=== PATIENT | female | born 1950 | race Caucasian/White ===

== ENCOUNTER 2016-10-24 09:54 | Inpatient (IN) | payer OTHER, MEDICARE ==
[~2016-10-24] VITALS: Ht 162.6 cm; Wt 66.0 kg
[2016-10-31] MEDS ORDERED: IPRAAER INH (15:36)
[2016-10-31] MEDS ORDERED: SYMB160A INH (15:38)
[2016-10-31] MEDS ORDERED: ASPI81TA81 PO (15:38)
[2016-10-31] MEDS ORDERED: OMEP20TA PO (15:40)
[2016-10-31] MEDS ORDERED: NOVOLOGSS SQ (15:42)
[2016-11-04] VITALS (7 sets, daily range): BP systolic 122–149; BP diastolic 64–70; PULSE 96–110; RESP 16; TEMP 97.8–98.5; O2SAT 92–96
[2016-11-04] MEDS ORDERED: ONDANSETRON HCL 4 MG/2 ML VIAL IV PUSH ONE (12:00)
[2016-11-04] MEDS ORDERED: PROPOFOL 200 MG/20 ML AMP IV ONE (12:00)
[2016-11-04] MEDS ORDERED: PHENYLEPH/NS 1000 MCG/10 ML SYR IV ONE (12:00)
[2016-11-04] MEDS ORDERED: ePHEDrine/NS 25 MG/5 ML SYR IV ONE (12:00)
[2016-11-04] MEDS ORDERED: LACTATED RINGER'S 1000 ML INJ 1,000 ML IV ONE (12:00)
[2016-11-04] MEDS ORDERED: METOPROLOL TARTRATE 25 MG TAB PO PRN (12:15)
[2016-11-04] MEDS ORDERED: INSULIN HUMAN REGULAR 1,000 UNITS/10 ML VIAL SQ PRN (12:15)
[2016-11-04] MEDS ORDERED: LACTATED RINGER'S 1000 ML IV PRN (12:15)
[2016-11-04] MEDS ORDERED: ceFAZolin 1,000 MG/NS 100 ML IV SCH ×2 (12:15)
[2016-11-04] MEDS ORDERED: CHLORHEXIDINE GLUCONATE 2 % 1 PACK (2 CLOTHS) TOPICAL PRN (12:15)
[2016-11-04] MEDS ORDERED: SODIUM CHLORID 0.9% 500 ML IV PRN (12:15)
[2016-11-04] MEDS ORDERED: METRONIDAZOLE 500 MG/100 ML ISONTONIC SOLN IV SCH (12:15)
[2016-11-04] MEDS ORDERED: ALVIMOPAN 12 MG CAPSULE - On Call PO SCH (12:15)
[2016-11-04] MEDS ORDERED: DEXT 5%-NACL 0.9% 1000 ML INJ 1,000 ML IV SCH (12:15)
[2016-11-04] MEDS ORDERED: fentaNYL CITRATE 250 MCG/5 ML AMP ONE (12:35)
[2016-11-04] MEDS ORDERED: HYDROmorphone HCL PF 2 MG/ML VIAL ONE (12:35)
[2016-11-04] MEDS ORDERED: SUGAMMADEX SODIUM 200 MG/2 ML VIAL IV PUSH ONE ×2 (12:35)
--- NOTE | 2016-11-04 13:06 | PD.HP.UP ---
H&P Update Note The Pre-Admit History and Physical Examination regarding the above named patient was reviewed (including, but not limited to, vital signs, heart, lungs, co-morbid conditions), and upon re-examination it is noted that: the patient's condition has not significantly changed since the last examination. Car Vasquez MD Nov 04, 2016 13:06
[2016-11-04] MEDS ORDERED: Post-op Orders (for Pharmacy) MISC XX ONE (15:22)
[2016-11-04] MEDS ORDERED: NALOXONE HCL 0.4 MG/ML AMP IV PRN (15:30)
[2016-11-04] MEDS ORDERED: ZOLPIDEM TARTRATE 5 MG TAB PO PRN (15:30)
[2016-11-04] MEDS ORDERED: GLUCAGON 1 MG/ML VIAL OTHER PRN (15:30)
[2016-11-04] MEDS ORDERED: POTASSIUM CHLOR 20 MEQ PREMIX 100 ML IV PRN (15:30)
[2016-11-04] MEDS ORDERED: POTASSIUM CHLOR 40 MEQ PREMIX 100 ML IV PRN (15:30)
[2016-11-04] MEDS ORDERED: BENZOCAINE 6 MG/MENTHOL 10 MG LOZENGE BUCCAL PRN (15:30)
[2016-11-04] MEDS ORDERED: ENALAPRILAT 1.25 MG/ML VIAL IV PRN (15:30)
[2016-11-04] MEDS ORDERED: SODIUM CHLORIDE 0.9% FLUSH 10 ML FLUSH IV FLUSH PRN (15:30)
[2016-11-04] MEDS ORDERED: DEXTROSE 50% IN WATER 50 ML VIAL(D50) IV PUSH PRN (15:30)
[2016-11-04] MEDS ORDERED: KETOROLAC TROMETHAMINE 30 MG/ML (IVP) VIAL IVP PRN (15:30)
[2016-11-04] MEDS ORDERED: *morphine SULFATE 8 MG/ML PERIprocedure ONLY ONE ×2 (15:57→17:04)
[2016-11-04] MEDS: INSULIN NovoLIN REGULAR SUPPLEMENTAL SCALE SQ SCH ×2 (16:00→21:54)
[2016-11-04] MEDS ORDERED: DO NOT ADM ANY ANTICOAGULANT DRUGS PRN (16:00)
--- NOTE | 2016-11-04 16:30 | MP ---
cc: PANDA CARBALLO M.D., JOHN T. MD GONTCHAROVA, MARIA PASRICHA, SUNIL P. M.D. DESAI, SURESH DATE OF SURGERY: 11/04/2016 PREOPERATIVE DIAGNOSIS: Proximal ascending colon carcinoma. POSTOPERATIVE DIAGNOSIS: Proximal ascending colon carcinoma. OPERATION: Ascending colectomy. ANESTHESIA General endotracheal anesthesia SURGEON Dr. Vasquez. NEON GLASS BENDER: Dr. Mason. ESTIMATED BLOOD LOSS: 25 cc OPERATIVE FINDINGS This patient was diagnosed with an ascending colon carcinoma, after coming in with anemia. She underwent a colonoscopy by Dr. Patel. At colonoscopy biopsy of the lesion was done and returned as adenocarcinoma of the colon. For this reason, an ascending colectomy was recommended. At surgery an ascending colectomy was done with an ileotransverse colon anastomosis. Exploration of the abdominal cavity revealed that the colon was otherwise palpably normal as was the small bowel. The uterus, tubes and ovaries were surgically absent. The liver was palpably normal although there were adhesions above the liver precluding a full palpation of the liver but what was palpable was normal including the full left lobe of the liver. The gallbladder was also palpably normal as was the stomach. The descending and sigmoid colon was covered with the omentum that was stuck down the left colic gutter. The peritoneal edge showed that it was not really palpable but appeared normal. The carcinoma was located in the proximal ascending colon just above the cecum. OPERATIVE TECHNIQUE The patient was placed on the table in the supine position. After adequate general endotracheal anesthesia the abdomen was prepped and draped in the usual manner. Transverse supraumbilical skin incision was made and carried down through the subcutaneous tissue and the rectus muscles and the peritoneal cavity was entered with the above-mentioned findings. We initially did a right upper abdominal incision, however, there was not sufficient space due to her small body habitus and mild obesity, so I extended the incision over the left rectus muscle as well. Once the abdomen was fully opened we did note that the splenic flexure and the omentum on the left side was firmly adherent in the left upper quadrant and along the descending colon to the parietal peritoneum. The lesion was palpable in the proximal ascending colon, ascending colon, and the ascending colon was mobilized along its peritoneal reflection. Once this was done the omentum was mobilized from the transverse colon and the lesser sac was entered and the full transverse colon was mobilized from the omentum up to but not including the splenic flexure or the descending colon. Once this was done the point for division of the transverse colon was decided and we went ahead and went between the two branches of the middle colic vessel and the marginal vessel was singly clamped, cut and ligated with 0 Vicryl ligature and then the transverse colon was divided in its mid section with the Ethicon PAIGE 55 stapling device. Next the ileal colic vessels were isolated and the terminal ileum was divided between Tony clamps and the small bowel vessels near the terminal ileum were clamped, cut and ligated. The ileocolic vessels were doubly clamped, cut and doubly ligated at their origin. The right branch of the middle colic vessel and the right colic vessels were clamped, cut and ligated and the specimen was removed from the table. When the case was over, the specimen was opened, identifying the carcinoma in the proximal ascending colon. Next our attention was turned to the ileum and the transverse colon and the anastomosis was made along the antimesenteric border of the bowel using the Ethicon PAIGE 55 stapling device and then the colotomy was closed with a TX 60 blue staple height stapling device. The opening in the mesentery was approximated with a running 3-0 Vicryl suture in a simple running manner. Hemostasis was maintained throughout with electrocautery and ligature. The abdominal cavity was irrigated thoroughly with saline solution, aspirated dry, and the bowels were replaced in the abdominal cavity in an business solutions consultant manner and the omentum was laid over the left half of the omentum which was remaining was laid over the abdominal contents and then the abdominal cavity was closed in layers using a double strand #1 PDS for the posterior rectus sheath and then that layer was irrigated thoroughly with a liter of saline solution, aspirated dry, and then the anterior rectus sheath and external oblique was closed with double stranded #1 PDS as well. The subcutaneous tissue was irrigated thoroughly with saline solution, aspirated dry, then the skin was closed with running 3-0 Vicryl subcuticular suture and a dressing was applied. Sponge, needle instrument counts were reported as correct. ESTIMATED BLOOD LOSS: 25 cc. The patient tolerated the procedure well and left the operating room in good condition. MD SIOMARA Vaughan/TIARA /3:23 PM /3:59 PM
[2016-11-04 16:36] LABS: AUTOMATED NEUTROPHIL # 13.8 TH/MM3 (1.8-7.7); BASOPHIL # 0.1 TH/MM3 (0-0.2); BASOPHIL % 0.7 % (0.0-2.0); EOSINOPHIL % 0.1 % (0.0-4.0); HEMATOCRIT 33.1 % (35.0-46.0); LYMPH % 6.6 % (9.0-44.0); MEAN CELL VOLUME 87.4 FL (80.0-100.0); MEAN CORPUSCULAR HEMOGLOBIN 28.2 PG (27.0-34.0); MEAN CORPUSCULAR HGB CONC 32.2 % (32.0-36.0); MONO % 1.7 % (0.0-8.0); NEUT % 90.9 % (16.0-70.0); PLATELET COUNT 329 TH/MM3 (150-450); RED BLOOD COUNT 3.79 MIL/MM3 (4.00-5.30); WHITE BLOOD COUNT 15.2 TH/MM3 (4.0-11.0)
[2016-11-04 16:42] LABS: HEMO FLAGS AUTO DIFF
[2016-11-04 16:50] LABS: BICARBONATE 25.2 MEQ/L (21.0-32.0); POTASSIUM 3.9 MEQ/L (3.5-5.1)
[2016-11-04 17:06] LABS: BANDS 16 % (0-6); NEUTROPHIL # MANUAL DIFF 14.3 TH/MM3 (1.8-7.7); OVALOCYTES 1+ (NORMAL); PLATELET ESTIMATE SMEAR NORMAL (NORMAL); PLATELET MORPHOLOGY NORMAL (NORMAL); POLYS (SEG NEUTROPHILS) 78 % (16-70); WBC DIFF SAMPLE 100
[2016-11-04 17:07] LABS: SCAN/DIFF FINAL DIFF MANUAL
[2016-11-04] MEDS: D5-LR + KCL 20 MEQ INJ 1,000 ML IV SCH ×3 (17:45→20:16)
[2016-11-04] MEDS: METOCLOPRAMIDE HCL 10 MG/2 ML VIAL IVS SCH (18:00)
[2016-11-04] MEDS: ONDANSETRON HCL 4 MG/2 ML VIAL IV PRN (18:46)
[2016-11-04] MEDS: ceFAZolin 2 GM PREMIX 50 ML IV SCH (20:17)
[2016-11-04] MEDS: SODIUM CHLORIDE 0.9% FLUSH 10 ML FLUSH IV FLUSH SCH (21:41)
[2016-11-04] MEDS: FUROSEMIDE 20 MG/2 ML VIAL IV SCH (21:41)
[2016-11-04] MEDS: metroNIDAZOLE 500 MG INJ 100 ML IV SCH (21:42)
[2016-11-04] MEDS: PCA - TOTAL MG MORPHINE DELIVERED PER SHIFT SCH (22:00)
[2016-11-05] VITALS (21 sets, daily range): BP systolic 131–145; BP diastolic 55–65; PULSE 100–118; RESP 18–19; TEMP 99–100.8; O2SAT 95–99
[2016-11-05] MEDS: METOCLOPRAMIDE HCL 10 MG/2 ML VIAL IVS SCH ×4 (00:03→17:22)
[2016-11-05] MEDS: D5-LR + KCL 20 MEQ INJ 1,000 ML IV SCH ×2 (01:19→05:27)
[2016-11-05] MEDS: ceFAZolin 2 GM PREMIX 50 ML IV SCH ×2 (04:19→12:06)
[2016-11-05] MEDS: metroNIDAZOLE 500 MG INJ 100 ML IV SCH ×2 (05:27→12:07)
[2016-11-05] MEDS: PCA - TOTAL MG MORPHINE DELIVERED PER SHIFT SCH ×3 (06:00→22:00)
[2016-11-05] MEDS: INSULIN NovoLIN REGULAR SUPPLEMENTAL SCALE SQ SCH ×4 (06:21→20:08)
[2016-11-05 06:37] LABS: AUTOMATED NEUTROPHIL # 12.1 TH/MM3 (1.8-7.7); BASOPHIL % 0.1 % (0.0-2.0); HEMATOCRIT 32.9 % (35.0-46.0); LYMPHOCYTE # 0.7 TH/MM3 (1.0-4.8); MEAN CELL VOLUME 87.6 FL (80.0-100.0); MEAN CORPUSCULAR HEMOGLOBIN 27.6 PG (27.0-34.0); MEAN CORPUSCULAR HGB CONC 31.5 % (32.0-36.0); MONO % 4.4 % (0.0-8.0); NEUT % 90.5 % (16.0-70.0); PLATELET COUNT 311 TH/MM3 (150-450); RED BLOOD COUNT 3.75 MIL/MM3 (4.00-5.30); RED CELL DISTRIBUTION WIDTH 28.4 % (11.6-17.2); WHITE BLOOD COUNT 13.4 TH/MM3 (4.0-11.0)
[2016-11-05 06:43] LABS: HEMO FLAGS AUTO DIFF
[2016-11-05 07:07] LABS: BICARBONATE 29.6 MEQ/L (21.0-32.0); POTASSIUM 4.1 MEQ/L (3.5-5.1)
[2016-11-05 07:59] LABS: SCAN/DIFF AUTO DIFF CONFIRMED
--- NOTE | 2016-11-05 08:52 | HHI.PR ---
Subjective Remarks Not much pain. No vomiting. Objective Vital Signs Date Time Temp Pulse Resp B/P (MAP) Pulse Ox O2 Delivery O2 Flow Rate FiO2 11/05/16 07:15 99 Nasal Cannula 2.00 11/05/16 07:15 99.0 114 19 131/55 (80) 99 11/05/16 06:00 104 11/05/16 06:00 18 11/05/16 04:00 105 11/05/16 03:00 99.0 110 18 135/56 (82) 98 11/05/16 03:00 103 11/05/16 03:00 98 Nasal Cannula 2.00 11/05/16 02:00 102 11/05/16 01:00 104 11/05/16 00:00 106 11/04/16 23:00 98.5 110 16 149/70 (96) 96 11/04/16 23:00 98 11/04/16 23:00 96 Nasal Cannula 2.00 11/04/16 22:00 96 11/04/16 22:00 14 11/04/16 21:57 95 Nasal Cannula 3.00 11/04/16 21:00 96 11/04/16 20:00 110 11/04/16 19:00 97.8 104 16 122/64 (83) 94 11/04/16 19:00 98 11/04/16 19:00 94 Nasal Cannula 2.00 11/04/16 18:27 98.5 102 16 137/67 (90) 92 11/04/16 17:45 98.1 100 16 119/53 (75) 98 Nasal Cannula 2 11/04/16 17:30 100 16 136/61 (86) 98 Nasal Cannula 2 11/04/16 17:00 102 16 145/65 (91) 98 Nasal Cannula 2 11/04/16 16:30 98 16 141/65 (90) 98 Nasal Cannula 2 11/04/16 16:15 96 17 144/64 (90) 98 Nasal Cannula 2 11/04/16 16:00 91 17 152/65 (94) 98 Nasal Cannula 2 11/04/16 15:45 93 15 149/67 (94) 98 Nasal Cannula 2 11/04/16 15:30 93 15 145/67 (93) 94 Nasal Cannula 2 11/04/16 15:21 97.6 96 15 135/63 (87) 94 Nasal Cannula 2 11/04/16 12:27 99.1 117 20 156/71 (99) 97 I/O 11/04/16 11/04/16 11/04/16 11/05/16 11/05/16 11/05/16 06:59 14:59 22:59 06:59 14:59 22:59 Intake Total 1100 ml 1825 ml Output Total 175 ml 1850 ml Balance 925 ml -25 ml Intake IV Total 100 ml 1825 ml Other 1000 ml Output Urine Total 150 ml 1850 ml Estimated Blood Loss 25 ml Result Diagram: 11/05/16 0500 11/05/16 0500 Objective Remarks VS-S Abd: soft,dressing dry I&Os-OK Labs-OK Assessment and Plan Assessment and Plan Stable POD#1 Remove Dextrose from IVs,Increase insulin coverage. OOB. Transfer Car Vasquez MD Nov 05, 2016 08:52
[2016-11-05] MEDS ORDERED: DEXTROSE 50% IN WATER 50 ML VIAL(D50) IV PUSH PRN (09:00)
[2016-11-05] MEDS ORDERED: GLUCAGON 1 MG/ML VIAL OTHER PRN (09:00)
[2016-11-05] MEDS: SODIUM CHLORIDE 0.9% FLUSH 10 ML FLUSH IV FLUSH SCH ×2 (09:00→20:05)
[2016-11-05] MEDS: POTASSIUM CHLORIDE INJ 20 MEQ in LACTATED RINGER'S 1000 ML INJ 1,000 ML IV SCH ×2 (09:20→17:22)
[2016-11-05] MEDS: FUROSEMIDE 20 MG/2 ML VIAL IV SCH ×2 (09:21→20:04)
[2016-11-05] MEDS: ALVIMOPAN 12 MG CAPSULE - Post-op dosing PO SCH ×2 (09:21→20:05)
[2016-11-05] MEDS: PANTOPRAZOLE SODIUM 40 MG VIAL IVP SCH (09:21)
[2016-11-05] MEDS: ONDANSETRON HCL 4 MG/2 ML VIAL IV PRN (15:15)
[2016-11-05] MEDS: MORPHINE SULFATE 30 MG/30 ML PCA IV SCH ×2 (18:26→18:33)
[2016-11-05] MEDS ORDERED: ALVIMOPAN 12 MG CAPSULE PO SCH (21:00)
[2016-11-06] MEDS: METOCLOPRAMIDE HCL 10 MG/2 ML VIAL IVS SCH ×4 (00:24→17:22)
[2016-11-06] MEDS: POTASSIUM CHLORIDE INJ 20 MEQ in LACTATED RINGER'S 1000 ML INJ 1,000 ML IV SCH ×4 (00:28→21:38)
[2016-11-06 00:43] VITALS: BP 145/65; PULSE 110; RESP 17; TEMP 98.8; O2SAT 92
[2016-11-06 04:16] VITALS: BP 156/67; PULSE 112; RESP 17; TEMP 98.9; O2SAT 97
[2016-11-06] MEDS: INSULIN NovoLIN REGULAR SUPPLEMENTAL SCALE SQ SCH ×4 (05:31→21:00)
[2016-11-06] MEDS: PCA - TOTAL MG MORPHINE DELIVERED PER SHIFT SCH (05:37)
[2016-11-06 07:30] LABS: AUTOMATED NEUTROPHIL # 9.2 TH/MM3 (1.8-7.7); BASOPHIL % 0.4 % (0.0-2.0); EOSINOPHIL % 0.1 % (0.0-4.0); HEMATOCRIT 30.1 % (35.0-46.0); LYMPH % 13.4 % (9.0-44.0); LYMPHOCYTE # 1.5 TH/MM3 (1.0-4.8); MEAN CORPUSCULAR HEMOGLOBIN 28.5 PG (27.0-34.0); MEAN CORPUSCULAR HGB CONC 32.8 % (32.0-36.0); NEUT % 80.1 % (16.0-70.0); PLATELET COUNT 297 TH/MM3 (150-450); RED BLOOD COUNT 3.47 MIL/MM3 (4.00-5.30); RED CELL DISTRIBUTION WIDTH 28.9 % (11.6-17.2); WHITE BLOOD COUNT 11.4 TH/MM3 (4.0-11.0)
[2016-11-06 08:00] VITALS: BP 172/74; PULSE 126; RESP 19; TEMP 99.4; O2SAT 96
[2016-11-06 08:04] LABS: HEMO FLAGS AUTO DIFF
[2016-11-06 08:06] LABS: BICARBONATE 32.3 MEQ/L (21.0-32.0); POTASSIUM 3.7 MEQ/L (3.5-5.1)
[2016-11-06] MEDS: FUROSEMIDE 20 MG/2 ML VIAL IV SCH ×2 (09:00→21:39)
[2016-11-06] MEDS: SODIUM CHLORIDE 0.9% FLUSH 10 ML FLUSH IV FLUSH SCH ×2 (09:00→21:00)
[2016-11-06 09:07] LABS: PLATELET ESTIMATE SMEAR NORMAL (NORMAL); PLATELET MORPHOLOGY ENLARGED (NORMAL); SCAN/DIFF AUTO DIFF CONFIRMED
[2016-11-06] MEDS: ALVIMOPAN 12 MG CAPSULE - Post-op dosing PO SCH ×2 (09:09→21:38)
[2016-11-06] MEDS: PANTOPRAZOLE SODIUM 40 MG VIAL IVP SCH (09:09)
[2016-11-06] MEDS: ONDANSETRON HCL 4 MG/2 ML VIAL IV PRN ×2 (09:17→17:22)
[2016-11-06 12:00] VITALS: BP 160/76; PULSE 113; RESP 18; TEMP 98.4; O2SAT 95
--- NOTE | 2016-11-06 13:46 | HHI.PR ---
Subjective Remarks Not much pain. No vomiting.Tolerating liquids Objective Vital Signs Date Time Temp Pulse Resp B/P (MAP) Pulse Ox O2 Delivery O2 Flow Rate FiO2 11/06/16 12:00 98.4 113 18 160/76 (104) 95 11/06/16 08:00 99.4 126 19 172/74 (106) 96 11/06/16 05:37 18 11/06/16 04:16 98.9 112 17 156/67 (96) 97 11/06/16 00:43 98.8 110 17 145/65 (91) 92 11/05/16 22:00 18 11/05/16 20:00 99.9 112 18 145/64 (91) 97 11/05/16 18:42 Nasal Cannula 2.00 11/05/16 18:26 19 11/05/16 18:00 100.8 108 18 143/65 (91) 97 11/05/16 17:00 101 11/05/16 16:00 100 11/05/16 15:00 99.6 107 19 131/59 (83) 96 11/05/16 15:00 102 11/05/16 15:00 96 Nasal Cannula 2.00 11/05/16 14:00 18 11/05/16 14:00 102 I/O 11/05/16 11/05/16 11/05/16 11/06/16 11/06/16 11/06/16 07:00 15:00 23:00 07:00 15:00 23:00 Intake Total 1825 ml 1770 ml 240 ml Output Total 1850 ml 1400 ml 1000 ml Balance -25 ml 370 ml -760 ml Intake Oral 720 ml 240 ml IV Total 1825 ml 1050 ml Output Urine Total 1850 ml 1400 ml 1000 ml # Voids 4 Result Diagram: 11/06/16 0514 11/06/16 0514 Objective Remarks VS-S Abd: soft,dressing removed. wound clean I&Os-OK Labs-OK Assessment and Plan Assessment and Plan Stable POD2 Ambulate,advance diet Car Vasquez MD Nov 06, 2016 13:46
[2016-11-06 16:00] VITALS: BP 185/77; PULSE 121; RESP 18; TEMP 99.5; O2SAT 95
[2016-11-06 20:41] VITALS: BP 160/70; PULSE 115; RESP 17; TEMP 99.7; O2SAT 98
[2016-11-07] VITALS: BP 146/70; PULSE 118; RESP 18; TEMP 99.6; O2SAT 96
[2016-11-07] MEDS: INSULIN NovoLIN REGULAR SUPPLEMENTAL SCALE SQ SCH ×4 (05:21→22:33)
[2016-11-07] MEDS: METOCLOPRAMIDE HCL 10 MG/2 ML VIAL IVS SCH ×4 (05:21→18:09)
[2016-11-07 08:00] VITALS: BP 143/65; PULSE 116; RESP 18; TEMP 98; O2SAT 93
[2016-11-07] MEDS: FUROSEMIDE 20 MG/2 ML VIAL IV SCH (09:11)
[2016-11-07] MEDS: ALVIMOPAN 12 MG CAPSULE - Post-op dosing PO SCH ×2 (09:11→22:14)
[2016-11-07] MEDS: PANTOPRAZOLE SODIUM 40 MG VIAL IVP SCH (09:11)
[2016-11-07] MEDS: SODIUM CHLORIDE 0.9% FLUSH 10 ML FLUSH IV FLUSH SCH ×2 (09:12→21:00)
[2016-11-07 12:00] VITALS: BP 140/64; PULSE 116; RESP 20; TEMP 99.3; O2SAT 97
[2016-11-07 16:00] VITALS: BP 116/62; PULSE 136; RESP 20; TEMP 100.1; O2SAT 93
--- NOTE | 2016-11-07 16:21 | HHI.PR ---
Subjective Remarks Not much pain. No vomiting.Tolerating regular diet. Flatus but no BMs Objective Vital Signs Date Time Temp Pulse Resp B/P (MAP) Pulse Ox O2 Delivery O2 Flow Rate FiO2 11/07/16 12:00 99.3 116 20 140/64 (89) 97 11/07/16 09:12 93 Nasal Cannula 3.00 11/07/16 08:00 98.0 116 18 143/65 (91) 93 11/07/16 00:00 99.6 118 18 146/70 (95) 96 11/06/16 20:41 99.7 115 17 160/70 (100) 98 I/O 11/06/16 11/06/16 11/06/16 11/07/16 11/07/16 11/07/16 06:59 14:59 22:59 06:59 14:59 22:59 Intake Total 240 ml 1101 ml 1166 ml Output Total 1000 ml 1100 ml 2200 ml Balance -760 ml 1 ml -1034 ml Intake Oral 240 ml 600 ml IV Total 1101 ml 566 ml Output Urine Total 1000 ml 1100 ml 2200 ml Result Diagram: 11/06/1651311/06/16513 Objective Remarks VS-S Abd: soft, wound clean I&Os-OK Labs-OK Assessment and Plan Assessment and Plan Stable POD#3 D/C in AM Car Vasquez MD Nov 07, 2016 16:21
[2016-11-07] MEDS: ACETAMINOPHEN/HYDROcodone 325 MG/5 MG TAB PO PRN ×2 (18:01→22:14)
[2016-11-07 20:00] VITALS: BP 128/66; PULSE 113; RESP 20; TEMP 99.6; O2SAT 99
[2016-11-07] MEDS: POTASSIUM CHLORIDE INJ 20 MEQ in LACTATED RINGER'S 1000 ML INJ 1,000 ML IV SCH ×2 (22:17→22:36)
[2016-11-07 23:00] VITALS: BP 128/66; PULSE 113; RESP 20; TEMP 99.6; O2SAT 99
[2016-11-08] MEDS: METOCLOPRAMIDE HCL 10 MG/2 ML VIAL IVS SCH ×4 (06:00→16:22)
[2016-11-08] MEDS: ACETAMINOPHEN/HYDROcodone 325 MG/5 MG TAB PO PRN ×4 (06:01→21:56)
[2016-11-08] MEDS: INSULIN NovoLIN REGULAR SUPPLEMENTAL SCALE SQ SCH ×4 (06:02→21:00)
[2016-11-08 08:00] VITALS: BP 135/64; PULSE 95; RESP 20; TEMP 98.1; O2SAT 95
[2016-11-08] MEDS: PANTOPRAZOLE SODIUM 40 MG VIAL IVP SCH (08:20)
[2016-11-08] MEDS: ALVIMOPAN 12 MG CAPSULE - Post-op dosing PO SCH ×2 (08:21→21:57)
[2016-11-08] MEDS: SODIUM CHLORIDE 0.9% FLUSH 10 ML FLUSH IV FLUSH SCH ×2 (08:21→21:57)
[2016-11-08] MEDS: POTASSIUM CHLORIDE INJ 20 MEQ in LACTATED RINGER'S 1000 ML INJ 1,000 ML IV SCH (11:06)
--- NOTE | 2016-11-08 11:59 | RADRPT ---
EXAM DATE/TIME: 11/08/2016 11:45 [facility] COMPARISON: CHEST PA & LAT, October 31, 2016, 13:34. INDICATIONS : Desaturation post op. MEDICAL HISTORY : Chronic obstructive pulmonary disease. Carcinoma, breast SURGICAL HISTORY : bilateral mastectomies ENCOUNTER: Subsequent ACUITY: 1 day PAIN SCORE: 4/10 LOCATION: Bilateral upper chest FINDINGS: PA and lateral views of the chest demonstrate the lungs to be symmetrically aerated without evidence of mass, infiltrate or effusion. The cardiomediastinal contours are unremarkable. Osseous structure s are intact. Surgical clips overlying the left axilla. CONCLUSION: No evidence of acute cardiopulmonary disease. No evidence of air space consolidation or pneumothorax. Leonie Carlson MD on November 08, 2016 at 11:53 Board Certified Radiologist. This report was verified electronically.
[2016-11-08 12:00] VITALS: BP 145/65; PULSE 117; RESP 19; TEMP 97.8; O2SAT 95
[2016-11-08] MEDS: BUDESONIDE-FORMOTEROL 160/4.5 MCG INHALER INH SCH ×2 (12:00→21:57)
[2016-11-08 16:00] VITALS: BP 141/65; PULSE 102; RESP 19; TEMP 98.7; O2SAT 97
[2016-11-08 20:00] VITALS: BP 135/57; PULSE 122; RESP 18; TEMP 96.2; O2SAT 95
[2016-11-08] MEDS: RESP: ALBUTEROL 2.5 MG/IPRATROPIUM 0.5 MG NEB (SCH) INH (20:01)
[2016-11-08 20:04] VITALS: O2SAT 98
[2016-11-09] VITALS: BP 142/59; PULSE 99; RESP 17; TEMP 97.7; O2SAT 97
[2016-11-09] MEDS: METOCLOPRAMIDE HCL 10 MG/2 ML VIAL IVS SCH ×3 (00:27→12:13)
[2016-11-09] MEDS: ACETAMINOPHEN/HYDROcodone 325 MG/5 MG TAB PO PRN ×3 (06:28→15:19)
[2016-11-09] MEDS: INSULIN NovoLIN REGULAR SUPPLEMENTAL SCALE SQ SCH ×2 (06:29→11:00)
[2016-11-09] MEDS: POTASSIUM CHLORIDE INJ 20 MEQ in LACTATED RINGER'S 1000 ML INJ 1,000 ML IV SCH (07:07)
[2016-11-09] MEDS: ALVIMOPAN 12 MG CAPSULE - Post-op dosing PO SCH (07:38)
[2016-11-09] MEDS: BUDESONIDE-FORMOTEROL 160/4.5 MCG INHALER INH SCH (07:39)
[2016-11-09] MEDS: PANTOPRAZOLE SODIUM 40 MG VIAL IVP SCH (07:39)
[2016-11-09] MEDS: SODIUM CHLORIDE 0.9% FLUSH 10 ML FLUSH IV FLUSH SCH (07:39)
[2016-11-09 08:00] VITALS: PULSE 97; RESP 20; TEMP 98.6
[2016-11-09] MEDS: RESP: ALBUTEROL 2.5 MG/IPRATROPIUM 0.5 MG NEB (SCH) INH (08:51)
[2016-11-09 08:52] VITALS: O2SAT 97
[2016-11-09] MEDS ORDERED: OXYGENDME NAS.CANULA (10:39)
[2016-11-09 12:00] VITALS: BP 153/65; PULSE 92; RESP 20; TEMP 97.2; O2SAT 95
--- NOTE | 2016-12-05 08:33 | MD ---
cc: RAJAT PATEL M.D., JOHN T. M.D. ADMISSION DATE: 11/04/2016 DISCHARGE DATE: 11/09/2016 ADMISSION DIAGNOSIS Proximal ascending colon carcinoma. DISCHARGE DIAGNOSIS Proximal ascending colon carcinoma. HISTORY This patient was diagnosed with an ascending colon carcinoma. After coming in with anemia, she underwent colonoscopy by Dr. Patel and at colonoscopy biopsy of the lesion was done and returned as adenocarcinoma of the colon. Pathology report on the removed specimen showed an invasive moderately differentiated adenocarcinoma 4.5 cm in greatest dimension and 2/13 lymph nodes were involved. This was at T3, N1b lesion. HOSPITAL COURSE The patient was admitted to the hospital on 11/04/2016 and underwent an ascending colectomy on 11/04/2016. On the first postoperative day, she was given clear liquids. On the second postoperative day, she was given full liquids and on third postoperative day, she was advanced to a regular diet. She was discharged from the hospital on 11/09/2016 on the fifth postoperative day. She was instructed to do no driving for two weeks, do no heavy lifting for six weeks and to call me with any problems. She was instructed to follow up with me in the office in two weeks time. MD SIOMARA Vaughan/DI /11:24 AM /8:14 AM
== END 2016-11-09 15:44 | disposition home or self-care (01) | DRG 331 ==
LOC: HSDI 11-04 11:27 → HCIS 11-04 18:28 → N07A 11-05 17:49
PROVIDERS: ADMIT Colon & Rectal Surgery; ATTEND Colon & Rectal Surgery
PROC: 0DTK0ZZ Resection of Ascending Colon, Open Approach (ICD-10-PCS; principal; 2016-11-04 13:31)
DX: C18.2 Malignant neoplasm of ascending colon (principal); J44.9 Chronic obstructive pulmonary disease, unspecified; E04.9 Nontoxic goiter, unspecified; D64.9 Anemia, unspecified; E11.9 Type 2 diabetes mellitus without complications; K66.0 Peritoneal adhesions (postprocedural) (postinfection); Z87.891 Personal history of nicotine dependence; G47.30 Sleep apnea, unspecified; Z79.4 Long term (current) use of insulin; Z96.41 Presence of insulin pump (external) (internal); Z85.3 Personal history of malignant neoplasm of breast
CPT/HCPCS: 71020; 76937; 80048; 82948; 85007; 85025; 85027; 86077; 86850; 86870; 86880; 86900; 86901; 86902; 86920; 86921; 86922; 88309; 94150; 94620; 94640; 94664; C9113; J0690; J1170; J1885; J1940; J2270; J2370; J2405; J2765; J3010; J3480; J7120

== ENCOUNTER → 2016-10-31 | Outpatient (CLI) | payer OTHER ==
[~2016-10-31] MED LIST: ALDA25TA PO; ASPI81TA81 PO; ASPI81TA82 PO; CALCTAB98 PO; COMBAER INH; FEXO60TA PO; FLUT50SP EACH NARE; GABA300C3 PO; HYDR10TA65 PO; IPRAAER INH; NOVOLOGP2 SC; NOVOLOGSS SQ; OMEP20TA PO; OXYGENDME NAS.CANULA; SYMB160A INH
[2016-10-31 13:32] LABS: AUTOMATED NEUTROPHIL # 4.3 TH/MM3 (1.8-7.7); BASOPHIL # 0.1 TH/MM3 (0-0.2); BASOPHIL % 1.1 % (0.0-2.0); EOSINOPHIL # 0.1 TH/MM3 (0-0.4); EOSINOPHIL % 1.1 % (0.0-4.0); LYMPH % 28.9 % (9.0-44.0); LYMPHOCYTE # 1.9 TH/MM3 (1.0-4.8); MEAN CELL VOLUME 85.7 FL (80.0-100.0); MEAN CORPUSCULAR HEMOGLOBIN 27.3 PG (27.0-34.0); MEAN CORPUSCULAR HGB CONC 31.9 % (32.0-36.0); MONO % 4.6 % (0.0-8.0); NEUT % 64.3 % (16.0-70.0); PLATELET COUNT 292 TH/MM3 (150-450); WHITE BLOOD COUNT 6.7 TH/MM3 (4.0-11.0)
[2016-10-31 13:42] LABS: HEMO FLAGS AUTO DIFF
[2016-10-31 13:44] LABS: BLOOD, URINE NEG (NEG); COMMENT (UR) CULT NOT INDICATED; CULTURE IF INDICATED CULT NOT INDICATED; GLUCOSE,URINE NEG (NEG); KETONE, URINE NEG (NEG); NITRITE,URINE NEG (NEG); SQUAMOUS EPITHELIAL CELL URINE <1 /hpf (0-5); URINE COLOR YELLOW (YELLW/STRAW)
[2016-10-31 13:44] LABS: APTT (PATIENT) 26.5 SEC (24.3-30.1); INTERNATIONAL NORMALIZED RATIO 0.9 RATIO; PROTHROMBIN TIME - PATIENT 10.1 SEC (9.8-11.6)
[2016-10-31 13:47] LABS: ANION GAP 8 MEQ/L (5-15); AST (GOT) 22 U/L (15-37); BLOOD UREA NITROGEN 14 MG/DL (7-18); CHLORIDE 100 MEQ/L (98-107); GLOMERULAR FILTRATION RATE 60 ML/MIN (>89); GLUCOSE,FASTING 93 MG/DL (74-99); POTASSIUM 3.3 MEQ/L (3.5-5.1); SODIUM (NA) 138 MEQ/L (136-145)
[2016-10-31 13:48] LABS: ALT (GPT) 33 U/L (10-53)
[2016-10-31 13:50] LABS: ALKALINE PHOSPHATASE 121 U/L (45-117); TOTAL BILIRUBIN ADULT 0.4 MG/DL (0.2-1.0)
--- NOTE | 2016-10-31 13:57 | RADRPT ---
EXAM DATE/TIME: 10/31/2016 13:34 [facility] COMPARISON: CHEST PA & LAT, September 09, 2014, 20:42. INDICATIONS : Evaluate for pneumonia, pneumothorax or communicable disease. Pre op for partial colectomy 11-04-16 MEDICAL HISTORY : Carcinoma, breast. SURGICAL HISTORY : bilateral breast removal-breast cancer. ENCOUNTER: Initial ACUITY: 1 day PAIN SCORE: 0/10 LOCATION: Bilateral chest FINDINGS: PA and lateral views of the chest demonstrate the lungs to be symmetrically aerated without evidence of mass, infiltrate or effusion. The cardiomediastinal contours are unremarkable. Osseous structure s are intact. CONCLUSION: No acute disease. Zeferino Eldridge MD on October 31, 2016 at 13:54 Board Certified Radiologist. This report was verified electronically.
[2016-10-31 14:34] LABS: ACANTHOCYTES 1+ (NORMAL); OVALOCYTES 1+ (NORMAL); PLATELET ESTIMATE SMEAR NORMAL (NORMAL); PLATELET MORPHOLOGY NORMAL (NORMAL); SCAN/DIFF FINAL DIFF MANUAL
--- NOTE | 2016-11-01 15:50 | EKG ---
Date Performed: 10/31/2016 Time Performed: 12:41:17 PTAGE: 65 years EKG: SINUS TACHYCARDIA POSSIBLE LEFT ATRIAL ENLARGEMENT POSSIBLE RIGHT VENTRICULAR CONDUCTION DE LAY ABNORMAL RHYTHM ECG PREVIOUS TRACING 11/11/2015 00.00.47 Since previous tracing, no significant change noted DOCTOR: Nadeem Ferguson Interpretating Date/Time 11/01/2016 15:49:08
== END ==
LOC: CPRE 12:00
PROVIDERS: ATTEND Colon & Rectal Surgery
DX: Z01.810 Encounter for preprocedural cardiovascular examination (principal); Z01.811 Encounter for preprocedural respiratory examination; Z01.812 Encounter for preprocedural laboratory examination; Z79.01 Long term (current) use of anticoagulants; C18.2 Malignant neoplasm of ascending colon; R94.31 Abnormal electrocardiogram [ECG] [EKG]
CPT/HCPCS: 36415; 71020; 80053; 81001; 82378; 85007; 85027; 85610; 85730; 93005

== ENCOUNTER 2016-12-03 08:26 | Day surgery (SDC) | payer OTHER ==
[~2016-12-03] VITALS: Ht 162.6 cm; Wt 62.7 kg
[~2016-12-03 08:26] MED LIST changes: -ALDA25TA PO; -ASPI81TA82 PO; -CALCTAB98 PO; -COMBAER INH; -FEXO60TA PO; -FLUT50SP EACH NARE; -GABA300C3 PO; -HYDR10TA65 PO; -NOVOLOGP2 SC
[2016-12-03 08:48] VITALS: BP 164/83; PULSE 127; RESP 20; TEMP 98.6; O2SAT 95
[2016-12-03] MEDS ORDERED: ceFAZolin 2 GM PREMIX 50 ML - implanted port/tunneled catheter insertion IV SCH (09:45)
[2016-12-03] MEDS ORDERED: VANCOMYCIN 1000 MG/NS 250 ML - implanted port/tunneled catheter IV SCH ×2 (09:45)
[2016-12-03] MEDS ORDERED: MIDAZOLAM HCL 5 MG/5 ML VIAL ONE (10:38)
--- NOTE | 2016-12-03 11:24 | PD.RAD ---
Post Procedure Progress Note Pre Procedure Diagnosis: (1) Colon cancer Post Procedure Diagnosis: (1) Colon cancer Procedure Date: Dec 03, 2016 Supervising Radiologist: Praveen Khan Estimated blood loss: 3CC Anesthesia: Local, Conscious Sedation Plan of Activity Patient to Unit: ROPU Patient Condition: Good Additional Comments: Port placed via the right IJ. Catheter in good position OK for use Full dictated report to follow See PACS Report for procedural detail/treatment Praveen Khan MD Dec 03, 2016 11:24
[2016-12-03 11:34] VITALS: BP 166/77; PULSE 107; RESP 17; TEMP 97.8; O2SAT 96
[2016-12-03] MEDS ORDERED: ONDANSETRON HCL 4 MG/2 ML VIAL ONE (11:45)
[2016-12-03 11:49] VITALS: BP 160/80; PULSE 112; RESP 20; O2SAT 94
[2016-12-03 12:04] VITALS: BP 164/83; PULSE 107; RESP 20; O2SAT 97
[2016-12-03 12:35] VITALS: BP 158/78; PULSE 110; RESP 18; O2SAT 96
--- NOTE | 2016-12-03 13:42 | RADRPT ---
EXAM DATE/TIME: 12/03/2016 09:46 [facility] COMPARISON: No previous studies available for comparison. INDICATIONS : Patient with colon cancer in need of IV access for antibiotics for [id number] placement. MEDICAL HISTORY : Bilateral breast cancer, Anemia, Diabetes, COPD, GERD, Cirrhosis, HLD, Ascending colon mass SURGICAL HISTORY : EGD, Colonoscopy, Right hemicolectomy, Partial hysterectomy, Double mastectomy ENCOUNTER: Initial ACUITY: 1 day PAIN SCORE: 0/10 IMAGE SERIES: ACCESS: Right basilic vein DEVICE(S): 1.) 3/4 [place]guillan Dilator PROCEDURE : 1. Ultrasound guided venous access. The risks, benefits and alternatives to the procedure were explained and verbal and written consent w as obtained. The site was prepped in sterile fashion. Full sterile technique was used, including ca p, mask, sterile gloves and gown and a large sterile sheet. Hand hygiene and 2% chlorhexidine and/or betadine/alcohol prep was utilized per protocol for cutaneous antisepsis. Sterile gel and sterile p robe cover were utilized for ultrasound guidance. The skin and subcutaneous tissues were infiltrate d with local anesthetic solution. With ultrasound guidance the prescribed vein was punctured for venous access. A 4 Anguillan dilator was placed and was flushed and locked with heparin. The patient tolerated procedure well and there were n o complications. CONCLUSION: Uncomplicated ultrasound guided venous access. Praveen Khan MD on December 03, 2016 at 13:40 Board Certified Radiologist. This report was verified electronically.
--- NOTE | 2016-12-03 13:42 | RADRPT ---
EXAM DATE/TIME: 12/03/2016 09:50 [facility] COMPARISON: PERIPHERAL IV ACCESS W/US, RT, December 03, 2016, 9:46. INDICATIONS : Patient with colon cancer in need of [id number]-Kemq placement. MEDICAL HISTORY : Bilateral breast cancer, Anemia, Diabetes, COPD, GERD, Cirrhosis, HLD, Ascending colon mass SURGICAL HISTORY : EGD, Colonoscopy, Right hemicolectomy, Partial hysterectomy, Double mastectomy ENCOUNTER: Initial ACUITY: 2 months PAIN SCORE: 0/10 FLUORO TIME: 0.5 minutes IMAGE SERIES: 1 SEDATION TIME: 20 minutes ACCESS: Right internal jugular vein SEDATION: 1.) 2 mg midazolam (Versed) IV 2.) 150 mcg fentanyl (Sublimaze) IV Prophylactic antibiotics were administered with appropriate pre-procedure timing. Vancomycin within 2 hours of procedure, Ancef (or alternative) within 1 hour of procedure. DEVICE: 1. 8 [place] single lumen Smart power port with vortex PROCEDURE : 1. Continuous pulse oximetry and EKG monitoring. 2. Intravenous conscious sedation. 3. Ultrasound guidance for venous access. 4. Fluoroscopic guided implantable central venous port placement. The patient was placed supine. The neck was prepped in sterile fashion. Full sterile technique was u sed, including cap, mask, sterile gloves and gown, and a large sterile sheet. Hand hygiene and 2% ch lorhexidine Betadine was utilized per protocol for cutaneous antisepsis with appropriate dry time for site. Sterile gel and sterile probe cover were utilized for ultrasound guidance. The skin and sub cutaneous tissues were infiltrated with local anesthetic solution. Under direct ultrasound guidance, central venous access was accomplished via the right internal jugul ar vein. The ultrasound images depicting access guidance were stored and saved to PACS for permanent record. A subcutaneous pocket was created using blunt dissection. The port was introduced to the p ocket. The catheter tubing was fed through a subcutaneous tunnel to the venotomy site. The catheter tubing was cut to a suitable length and then was introduced through a valved Peel-Away sheath and po sitioned with catheter tubing tip at the cavo-atrial junction level. The pocket incision was closed with subcuticular Vicryl suture. Steri-Strips were applied. The port was flushed and locked with he marialuisa solution per protocol. Sterile dressing was applied to the site. The patient tolerated the pr ocedure well. Conscious sedation was performed with the prescribed dosages and duration as above in the presence of an independent trained radiology nurse to assist in the monitoring of the patient. EKG and oximetry remained stable throughout the procedure. The patient tolerated the procedure well and there were no complications. The patient was sent to post anesthesia recovery in stable condition. CONCLUSION: Uncomplicated ultrasound and fluoroscopic guided implanted central venous port catheter placement as described in detail above. An 8 Brune[place] Power port was placed. Praveen Khan MD on December 03, 2016 at 13:40 Board Certified Radiologist. This report was verified electronically.
== END 2016-12-03 12:50 | disposition home or self-care (01) ==
LOC: HROP 08:26 → HRIP 08:27 → HROP 12:50
PROVIDERS: ATTEND Internal Medicine Hematology & Oncology
DX: Z45.2 Encounter for adjustment and management of vascular access device (principal); C18.9 Malignant neoplasm of colon, unspecified; Z85.3 Personal history of malignant neoplasm of breast; K74.60 Unspecified cirrhosis of liver; E78.5 Hyperlipidemia, unspecified; K21.9 Gastro-esophageal reflux disease without esophagitis; J44.9 Chronic obstructive pulmonary disease, unspecified; E11.9 Type 2 diabetes mellitus without complications
CPT/HCPCS: 36410; 36561; 76937; 77001; 99152; 99153; C1788; J0690; J1642; J2250; J2405; J3010; J3370; J7050

== ENCOUNTER → 2017-07-01 | Outpatient (CLI) | payer OTHER ==
[~2017-07-01] MED LIST changes: +ALLE60TA PO; -ASPI81TA81 PO; +CALC12502 PO; +CENTCHW3 PO; +CHOL10008 PO; +DENO60P SQ; -OMEP20TA PO; +OMEP20TA93 PO; +SPIR50TA PO; +[UNRECOGNIZED DRUG - CODE] PO
== END ==
LOC: HRSP 10:44
PROVIDERS: ATTEND Internal Medicine Pulmonary Disease
DX: J44.9 Chronic obstructive pulmonary disease, unspecified (principal)
CPT/HCPCS: 94060; 94618; 94726; 94729